=== PATIENT | male | born 2000 | race African-American/Black ===

== ENCOUNTER 2018-04-23 21:26 | Emergency (ER) | payer MEDICAID ==
[~2018-04-23] VITALS: Ht 177.8 cm; Wt 90.9 kg
[2018-04-23] MEDS ORDERED: LITH300C3 PO (21:56)
[2018-04-23] MEDS ORDERED: LURA40 PO (21:56)
[2018-04-23 22:11] VITALS: BP 129/83
[2018-04-23] MEDS ORDERED: LORazepam 1 MG TABLET PO ONE (22:45)
== END 2018-04-23 23:16 | disposition home or self-care (01) ==
LOC: EMS 21:28
DX: F84.0 Autistic disorder (principal); F31.9 Bipolar disorder, unspecified

== ENCOUNTER 2019-01-13 19:52 | Emergency (ER) | payer MEDICAID ==
[~2019-01-13] VITALS: Ht 172.7 cm; Wt 76.2 kg
[~2019-01-13 19:52] MED LIST: LITH300C3 PO; LURA40 PO
[2019-01-13 20:33] LABS: BASOPHILS % (AUTO) 0.4 % (0.0-2.0); EOSINOPHILS % (AUTO) 1.4 % (1.0-6.0); HEMATOCRIT 49.1 % (41-53); HEMOGLOBIN 16.9 g/dL (13.5-17.5); LYMPHOCYTES # (AUTO) 3.4 K/uL (1.0-4.8); LYMPHOCYTES % (AUTO) 55.5 % (22.0-44.0); MEAN CORPUSCULAR HEMOGLOBIN 29.5 pg (26.0-34.0); MEAN CORPUSCULAR HGB CONC 34.4 G/dL (31.0-37.0); MEAN CORPUSCULAR VOLUME 86 fL (80-100); MONOCYTES # (AUTO) 0.3 K/uL (0.1-1.0); MONOCYTES % (AUTO) 5.4 % (2.0-9.0); NEUTROPHILS # (AUTO) 2.3 K/uL (1.8-7.7); NEUTROPHILS % (AUTO) 37.3 % (40.0-70.0); PLATELET COUNT (AUTO) 223 K/uL (150-450); RED BLOOD CELL COUNT(AUTO) 5.73 MIL/uL (4.50-5.90); RED CELL DISTRIBUTION WIDTH 13.2 % (11.5-14.5)
[2019-01-13 20:43] LABS: ANION GAP 7 mmol/L (8-16); CALCIUM, TOTAL 9.1 mg/dL (8.8-10.5); CARBON DIOXIDE 29 mmol/L (22-29); CHLORIDE 103 mmol/L (98-107); CREATININE 0.76 mg/dL (0.60-1.30); GLOMERULAR FILTR. RATE CALC > 60 mL/min (>60); GLUCOSE,RANDOM 89 mg/dL (70-110); POTASSIUM 3.6 mmol/L (3.5-5.1); SODIUM SERUM 139 mmol/L (136-145); UREA NITROGEN, BLOOD 9 mg/dL (7-18)
[2019-01-13 20:49] LABS: ALANINE AMINOTRANSFERASE 32 U/L (12-78); ALBUMIN 4.2 g/dL (3.4-5.0); ALKALINE PHOSPHATASE 57 U/L (46-116); ASPARTATE AMINOTRANSFERASE 19 U/L (15-37); BILIRUBIN,TOTAL 0.3 mg/dL (0.1-1.0); TOTAL PROTEIN, SERUM 7.6 g/dL (6.4-8.2)
[2019-01-13 20:52] VITALS: BP 142/80
[2019-01-13] MEDS ORDERED: BENZ1TAB10 PO (21:39)
[2019-01-13] MEDS ORDERED: DIVA-78 PO (21:39)
[2019-01-13] MEDS ORDERED: GABA-531 PO (21:39)
[2019-01-13] MEDS ORDERED: GUAN1TAB22 PO (21:39)
[2019-01-13] MEDS ORDERED: PROP60SR PO (21:39)
[2019-01-13] MEDS ORDERED: BUSP15 PO (21:39)
[2019-01-13] MEDS ORDERED: LURA80 PO (21:39)
[2019-01-13] MEDS ORDERED: GABA-533 PO (21:39)
[2019-01-13] MEDS ORDERED: BusPIRone HCL 15 MG TABLET PO ONE (23:00)
[2019-01-13] MEDS ORDERED: DIVALPROEX SODIUM 250 MG DR TABLET PO ONE (23:00)
[2019-01-13] MEDS ORDERED: BENZTROPINE MESYLATE 1 MG TABLET PO ONE (23:00)
[2019-01-13] MEDS ORDERED: GABAPENTIN 300 MG CAPSULE PO ONE (23:00)
[2019-01-13 23:03] LABS: LITHIUM < 0.20 mmol/L (0.60-1.20)
== END 2019-01-14 00:19 | disposition home or self-care (01) ==
LOC: EMS 19:52
DX: F91.1 Conduct disorder, childhood-onset type (principal); H91.90 Unspecified hearing loss, unspecified ear; F84.0 Autistic disorder; F31.9 Bipolar disorder, unspecified; Z79.899 Other long term (current) drug therapy
CPT/HCPCS: 36415; 80053; 80178; 85025; 99285; G0480